=== PATIENT | female | born 1990 | race African-American/Black ===

== ENCOUNTER 2025-04-19 21:25 | Emergency (ER) | payer SELFPAY ==
[2025-04-19 21:27] VITALS: BP 183/100; BMI 48.9
--- NOTE | 2025-04-19 21:43 | ED.GENMED ---
History of Present Illness
<Deniz Chris PA-C - Last Filed: 04/21/25 16:05>
General
Chief Complaint: Allergic Reaction
Source: patient
Time Seen by Provider: 04/19/25 21:31
History of Present Illness
History of Present Illness:
34-year-old female with past medical history of hypertension and asthma presents to the ER via EMS after she was out eating dinner and after eating a piece of chocolate cake discovered that the cake had hazelnuts in it. Patient unfortunately
proceeded to have an anaphylactic reaction. EMS provided the patient with 1 EpiPen, 50 mg Benadryl, 10 mg of Decadron and 3 albuterol nebulizers. Patient reports that she did vomit following eating the cake. She was endorsing some shortness of
breath, throat swelling sensation and had notable edema to her face. Since getting the medications patient states she is feeling better however is noting still with the scratchy throat sensation.
Past History
<Deniz Chris PA-C - Last Filed: 04/21/25 16:05>
Past History
ED Past Medical History: Asthma and HTN
ED Past Surgical History: None
Social History
Tobacco: Non-smoker
Alcohol: Occasional
Drug: None
Living: with family
Employment: Employed
Review of Systems
<Deniz Chris PA-C - Last Filed: 04/21/25 16:05>
Review of Systems
All Other Systems: ROS reviewed and negative except as documented in HPI and ROS
Phy Exam
<Deniz Chris PA-C - Last Filed: 04/21/25 16:05>
Physical Exam
Physical Exam:
GENERAL: Alert , in no apparent distress
HEAD: Normocephalic atraumatic
EYE: conjunctiva clear
NECK: Supple,
ENT: o/p clr, mmm. Right eye periorbital edema, mild uvular edema but no deviation, no stridor or trismus
CARDIAC: Regular rate and rhythm
LUNGS: Clear breath sounds bilaterally, no acute respiratory distress, no wheezes/rales/rhonchi
NEUROLOGICAL: Alert and oriented
SKIN: Warm and dry, skin intact.
MUSCULOSKELETAL: well perfused.
PSYCH: Normal and appropriate interaction.
Scores
<Deniz Chris PA-C - Last Filed: 04/21/25 16:05>
Heart Failure Risk
Heart Failure Risk Score: Not Applicable
Heart Score for Chest Pain Patients
STEMI patient?: Not applicable
Withdrawal Assessment of Alcohol
Withdrawal Assessment Completed?: Not applicable
Course
<Deniz Chris PA-C - Last Filed: 04/21/25 16:05>
Orders/Labs/Results
Orders:
Orders
04/19/25 21:34
EPINEPHrine PF [Adrenalin] 1 mg .ROUTE .STK-MED ONE
04/19/25 21:36
EPINEPHrine PF [Adrenalin] 1 mg .ROUTE .STK-MED ONE
Vital Signs
Initial and Last Documented VS:
Initial Vital Signs
Temp Pulse Resp BP Pulse Ox
98.2 F 106 15 183/100 100
04/19/25 21:27 04/19/25 21:27 04/19/25 21:27 04/19/25 21:27 04/19/25 21:27
Last Documented Vital Signs
Temp Pulse Resp BP Pulse Ox
98.2 F 107 22 169/101 98
04/19/25 21:27 04/20/25 00:40 04/20/25 00:40 04/20/25 00:40 04/20/25 00:40
<Shoshana Jenkins MD - Last Filed: 04/20/25 00:39>
Orders/Labs/Results
Orders:
Orders
04/19/25 21:34
EPINEPHrine PF [Adrenalin] 1 mg .ROUTE .STK-MED ONE
04/19/25 21:36
EPINEPHrine PF [Adrenalin] 1 mg .ROUTE .STK-MED ONE
Vital Signs
Initial and Last Documented VS:
Initial Vital Signs
Temp Pulse Resp BP Pulse Ox
98.2 F 106 15 183/100 100
04/19/25 21:27 04/19/25 21:27 04/19/25 21:27 04/19/25 21:27 04/19/25 21:27
Last Documented Vital Signs
Temp Pulse Resp BP Pulse Ox
98.2 F 107 22 169/101 98
04/19/25 21:27 04/20/25 00:40 04/20/25 00:40 04/20/25 00:40 04/20/25 00:40
<Deniz Chris PA-C - Last Filed: 04/21/25 16:05>
MDM/Problems Addressed
Differential Diagnosis Includes:
anaphylaxis secondary to tree nut allergy
I do not have concern for infectious etiology
No signs of aspiration
MDM/Problems Addressed:
34-year-old female presenting to the ER for evaluation after experiencing an anaphylactic reaction to tree nut. This was unfortunately accidentally ingested after patient was told there was no nuts within the cake. Patient was treated with
medications prior to arrival with improvement of symptoms but still mildly present. Will continue to observe patient in the ER for extended period of time. Disposition pending.
<Deniz Chris PA-C - Last Filed: 04/21/25 16:05>
*Pulse Oximetry
SaO2: 100
Oxygen Mode of Delivery: Room air
Patient hypoxic: no
*Critical Care Note
Total Time (30-74mins, 75-104mins- exclusive of procedures): Not Applicable
<Deniz Chris PA-C - Last Filed: 04/21/25 16:05>
Comment
Comment:
On multiple initial reevaluations patient does have continued improvement of symptoms, the right periorbital edema continues to improve although is still present. Continuing to observe patient in the ER.
ED Attending Note
<Deniz Chris PA-C - Last Filed: 04/21/25 16:05>
-
Portions of this chart may have been created with voice recognition software.� Occasional wrong word or��sound alike� substitutions may have occurred due to the inherent limitations of voice recognition software.
<Shoshana Jenkins MD - Last Filed: 04/20/25 00:39>
ED Attending Note
Patient seen and examined by attending physician: Yes
I performed the substantive portion of visit, reviewed & personally made and approve the management plan that is documented in note by myself or GABBY.: Yes
ED Attending Note:
12:35 AM patient is resting comfortably. Uvula is no longer swollen. There is no swelling of tongue or lips. Patient reports that itching is gone. I encouraged patient to take 25 mg of Benadryl every 6-8 hours for the next 1 to 2 days for any
lingering symptoms. Additionally, patient understands she needs to start the prednisone prescription
Discharge Plan
Departure
Patient Disposition: Home (Routine Discharge)
Date of Disposition: 04/20/25
Time of Disposition: 00:35
Patient with high blood pressure during this ER visit?: Yes
Condition: Good
Discharge Problem:
Anaphylaxis
Instructions: Anaphylaxis (DC), How to use an autoinjector
Prescriptions:
New
epinephrine [Auvi-Q] 0.3 mg/0.3 mL auto-injector
0.3 mg IM ONCE Qty: 2 0RF
prednisone 20 mg tablet
40 mg PO DAILY 5 Days Qty: 10 0RF
Activity Restrictions/Additional Instructions:
Take 25 mg of Benadryl every 6-8 hours over the next 24 to 48 hours for any lingering symptoms such as itching or swelling. Additionally, please start the prednisone prescription later today. [id number]
[facility]
Use the epinephrine pen if you experience any difficulty breathing, swallowing, or experience significant swelling of the mouth or face for any future allergic reaction.
Interventions
Interventions:
*Risk Screen - Suicide Last Done: 04/19/25 21:27
*General Assessment Last Done: 04/19/25 21:27
*Neglect/Abuse Screening Last Done: 04/19/25 21:27
*ED COVID-19 Vaccine History Last Done: 04/19/25 21:27
*ED Influenza Vaccine History Last Done: 04/19/25 21:27
[facility] Fall Risk Assessment Tool Last Done: 04/19/25 21:35
*Nursing Disposition Last Done: 04/20/25 00:38
ED- Cardiac Assessment Last Done: 04/19/25 21:41
ED- Pulmonary Assessment Last Done: 04/19/25 21:41
ED-Skin Assessment Last Done: 04/19/25 21:37
Discharge Date and Time
Discharge Date/Time: 04/20/25 01:34
Print Language: CZECH
[2025-04-19 22:05] VITALS: BP 167/97
[2025-04-20 00:40] VITALS: BP 169/101
== END 2025-04-20 01:34 | disposition home or self-care (01) ==
LOC: EMR 21:25
PROVIDERS: EMERGENCY PHYSICIAN Emergency Medicine
DX: T78.09XA Anaphylactic reaction due to other food products, initial encounter (principal); X58.XXXA Exposure to other specified factors, initial encounter; I10 Essential (primary) hypertension; J45.909 Unspecified asthma, uncomplicated
CPT/HCPCS: 99283